=== PATIENT | male | born 1970 | race Caucasian/White ===

== ENCOUNTER 2020-10-22 06:45 | Emergency (ER) | payer BC, SELFPAY ==
--- NOTE | 2020-10-22 07:10 | ED.DIZZY ---
HPI - Dizziness General Stated Complaint: dizzy Time Seen by Provider: 10/22/20 07:10 Source: patient Mode of arrival: ambulatory Limitations: no limitations
[2020-10-22 07:16] VITALS: BP 178/95; PULSE 97; RESP 18; TEMP 36.8; O2SAT 100; BMI 32.5
--- NOTE | 2020-10-22 07:23 | ED_ITS ---
HPI - Alcohol General Chief Complaint: Dizziness Stated Complaint: dizzy Time Seen by Provider: 10/22/20 07:10 Source: patient Mode of arrival: ambulatory Limitations: no limitations History of Present Illness MD complaint: alcohol dependence Last drink: Days (ago) (yesterday 4pm) Chronic alcohol use: Yes Previous visits for alcohol intoxication: Yes Recent trauma: No Associated symptoms: nausea, tremors and other (feels weak and dizzy) Treatments prior to arrival: none Related Data Previous Rx's Medication Instructions Recorded chlordiazepoxide HCl 25 mg capsule See Rx Instructions .ROUTE 10/22/20 .COMPLEX PRN #30 cap naltrexone 50 mg tablet 50 mg PO DAILY #30 tab 10/22/20 ondansetron 4 mg disintegrating 4 mg PO Q8H PRN #20 tab 10/22/20 tablet Allergies Allergy/AdvReac Type Severity Reaction Status Date / Time No Known Allergies Allergy Verified 10/22/20 07:20 Review of Systems Review of Systems: Constitutional : No Weight loss, No Fever, No Chills, pos Fatigue, pos Malaise ENT/Mouth : No sore throat, No Rhinorrhea Eyes: No Eye Pain, No Swelling, No Redness Cardiovascular : No Chest Pain, No SOB, No Dyspnea on Exertion, No Orthopnea, No Edema, No Palpitations Respiratory : No Cough, No Sputum, No Wheezing Gastrointestinal : pos Nausea, No Vomiting, No Diarrhea, No Constipation, No abdominal Pain, No Hematochezia, No Melena Genitourinary : No Dysuria, No Urinary Frequency, No Hematuria, Musculoskeletal : No joint pain, No Myalgias, No Joint Swelling Skin : No Skin Lesions, No rash Neuro : pos Weakness, No Numbness, pos Dizziness, No Headache Psych : No Anxiety/Panic, No Depression Heme/Lymph: No Bruising, No Bleeding,No Lymphadenopathy Endocrine : No Polyuria, No Polydipsia All other systems reviewed and are negative [facility] Past Medical History Attestation statement: The following information was validated with the patient. Medical History Alcohol abuse HTN (hypertension) Social History Social History (Updated 10/22/20 @ 07:24 by Sara Garza DO) Alcohol intake: current Alcohol intake frequency: 3 or more drinks per day Alcohol type: wine Patient Tobacco Use Status: Never used Tobacco Use of substances other than those prescribed or required for medical reasons: No Advance Directives: No Advance Directives Information Provided: Yes Physical Exam Vital Signs: Vital Signs: Last Vital Signs Temp 98.2 F 10/22/20 07:16 Pulse 88 10/22/20 10:35 Resp 16 10/22/20 10:35 BP 131/83 10/22/20 10:35 Pulse Ox 99 10/22/20 10:35 Body Mass Index 32.5 Appearance: Alert. Oriented X3. No acute distress. Anxious Eyes: Pupils equal, round and reactive to light. ENT: Pharynx normal. Neck: Normal inspection. Neck supple. CVS: Normal heart rate and rhythm. Pulses normal. Respiratory: No respiratory distress. Breath sounds normal. Abdomen: Soft and nontender. Skin: Skin warm and dry. Normal skin color. Normal skin turgor. Extremities: No lower extremity edema. No calf ttp Neuro: Oriented X 3. No motor deficit. No sensory deficit. slightly tremulous Course Course Course Narrative: patient stable at this time medically cleared, VS stable, recovery coaches aware - wants to self detox at home Juan C from substance abuse team recommends naltrexone - patient has normal LFTs ,no opiate abuse MDM - Alcohol MDM Narrative Medical decision making narrative: 50 yo male with hx of HTN - didn't take his metoprolol yesterday, increasing ETOH abuse up to 4 to 5 bottles of wine a day, c/o feeling dizzy and weak with nausea, wants help to stop drinking, labs, IVF, ativan/magnesium, IV thiamine, once medically cleared will refer to recovery coaches, no SI. Lab Data Result diagrams: 10/22/20 07:30 10/22/20 07:30 Labs: Lab Results 10/22/20 10/22/20 10/22/20 Range/Units 07:30 07:30 07:30 WBC 6.8 (4.8-10.8) X10*3/uL RBC 4.62 (4.60-5.80) X10*6/uL Hgb 14.4 (14.0-18.0) g/dl Hct 40.8 L (42-52) % MCV 88.3 (80-98) fL MCH 31.2 (27.0-33.0) pg MCHC 35.3 (31.0-36.0) g/dl RDW 11.6 (11.0-16.0) % Plt Count 215 (160-400) X10*3/uL MPV 9.5 (9.4-12.4) fL Immature Gran % (Auto) 0.7 H (0.0-0.4) % Neut % (Auto) 84.6 H (45-73) % Lymph % (Auto) 7.5 L (20-40) % [place] % (Auto) 6.7 (2-11) % Eos % (Auto) 0.1 (0-4) % Baso % (Auto) 0.4 (0-2) % Lymph # (Auto) 0.5 L (1.2-4.9) X10*3/uL [place] # (Auto) 0.5 (0.1-1.2) X10*3/uL Eos # (Auto) 0.0 (0.0-0.4) X10*3/uL Baso # (Auto) 0.0 (0.0-0.2) X10*3/uL Abs Immat Gran (auto) 0.05 H (0.00-0.03) X10*3/uL Absolute Neuts (auto) 5.7 (2.0-8.3) X10*3/uL Absolute Nucleated RBC 0.000 (0.0-0.012) X10*3/uL Nucleated RBC % (auto) 0.0 (0.0-0.2) /100WBC Sodium 137 (135-145) mmol/L Potassium 3.9 (3.3-5.1) mmol/L Chloride 99 (96-108) mmol/L Carbon Dioxide 25 (22-29) mmol/L Anion Gap 17 (12-20) BUN 11 (9-16) mg/dL Creatinine 1.10 (0.5-1.4) mg/dL Estim Creat Clear Calc 95.5 Estimated GFR > 60 Random Glucose 115 (60-115) mg/dL Calcium 9.5 (8.4-10.2) mg/dL Magnesium 1.9 (1.6-2.6) mg/dL Total Bilirubin 0.9 (0.0-1.0) mg/dL Direct Bilirubin 0.3 (0.0-0.5) mg/dL AST 24 (5-37) U/L ALT 24 (0-40) U/L Alkaline Phosphatase 55 (39-117) U/L Total Protein 7.4 (6.5-8.0) g/dL Albumin 4.5 (3.5-5.0) g/dL Lipase 27 (8-78) U/L Ethyl Alcohol < 10 mg/dL COVID-19 (JP) (Negative) COVID-19 Clin Com 10/22/20 Range/Units 08:06 WBC (4.8-10.8) X10*3/uL RBC (4.60-5.80) X10*6/uL Hgb (14.0-18.0) g/dl Hct (42-52) % MCV (80-98) fL MCH (27.0-33.0) pg MCHC (31.0-36.0) g/dl RDW (11.0-16.0) % Plt Count (160-400) X10*3/uL MPV (9.4-12.4) fL Immature Gran % (Auto) (0.0-0.4) % Neut % (Auto) (45-73) % Lymph % (Auto) (20-40) % [place] % (Auto) (2-11) % Eos % (Auto) (0-4) % Baso % (Auto) (0-2) % Lymph # (Auto) (1.2-4.9) X10*3/uL [place] # (Auto) (0.1-1.2) X10*3/uL Eos # (Auto) (0.0-0.4) X10*3/uL Baso # (Auto) (0.0-0.2) X10*3/uL Abs Immat Gran (auto) (0.00-0.03) X10*3/uL Absolute Neuts (auto) (2.0-8.3) X10*3/uL Absolute Nucleated RBC (0.0-0.012) X10*3/uL Nucleated RBC % (auto) (0.0-0.2) /100WBC Sodium (135-145) mmol/L Potassium (3.3-5.1) mmol/L Chloride (96-108) mmol/L Carbon Dioxide (22-29) mmol/L Anion Gap (12-20) BUN (9-16) mg/dL Creatinine (0.5-1.4) mg/dL Estim Creat Clear Calc Estimated GFR Random Glucose (60-115) mg/dL Calcium (8.4-10.2) mg/dL Magnesium (1.6-2.6) mg/dL Total Bilirubin (0.0-1.0) mg/dL Direct Bilirubin (0.0-0.5) mg/dL AST (5-37) U/L ALT (0-40) U/L Alkaline Phosphatase (39-117) U/L Total Protein (6.5-8.0) g/dL Albumin (3.5-5.0) g/dL Lipase (8-78) U/L Ethyl Alcohol mg/dL COVID-19 (JP) Negative (Negative) COVID-19 Clin Com See Note Discharge Plan Discharge Clinical Impression: Alcohol abuse Patient Disposition: Home, Self-Care Instructions: Abuse of Alcohol (ED) Additional Instructions: return to ED for any worsening symptoms or concerns Prescriptions: New chlordiazepoxide HCl 25 mg capsule See Rx Instructions .ROUTE .COMPLEX PRN (Reason: alcohol withdrawal) Qty: 30 RF: 0 ondansetron 4 mg tablet,disintegrating 4 mg PO Q8H PRN (Reason: nausea and vomiting) Qty: 20 RF: 0 naltrexone 50 mg tablet 50 mg PO DAILY Qty: 30 RF: 1 Referrals: Himanshu Tejeda MD [Primary Care Provider] - 2 days (if not better) Stand Alone Forms: Work/School Release Interventions: ED Discharge Assessment Last Done: 10/22/20 10:45
[2020-10-22] MEDS: 0.9 % Sodium Chloride 1,000 ML 999 ML IVCONT (07:52)
[2020-10-22] MEDS: LORazepam 2 MG/ML VIAL 1 MG IVPUSH (07:52)
[2020-10-22] MEDS: Famotidine/PF 20 MG/2 ML VIAL IVPUSH (07:55)
[2020-10-22] MEDS: Thiamine HCL 200 MG/2 ML VIAL 100 MG IVPUSH (07:59)
[2020-10-22 08:05] VITALS: BP 138/93; PULSE 91
[2020-10-22] MEDS: Metoprolol Succinate ER 25 MG TAB.ER.24H PO (08:05)
[2020-10-22 08:09] LABS: MANUAL DIFF FLAG NO
[2020-10-22] MEDS: Magnesium Sulfate/H2O 2 GM/50 ML PIGGYBACK IV (08:14)
[2020-10-22 08:16] VITALS: BP 138/93; PULSE 88; RESP 17; O2SAT 98
[2020-10-22 08:17] LABS: Basophils Percent Auto 0.4 % (0-2); Eosinophils Percent Auto 0.1 % (0-4); Hematocrit 40.8 % (42-52); Hemoglobin 14.4 g/dl (14.0-18.0); Imm Gran Abs Auto 0.05 X10*3/uL (0.00-0.03); Imm Gran Pct Auto 0.7 % (0.0-0.4); Lymphocytes Absolute Auto 0.5 X10*3/uL (1.2-4.9); Lymphocytes Percent Auto 7.5 % (20-40); Mean Corpuscular HGB Conc 35.3 g/dl (31.0-36.0); Mean Corpuscular Hemoglobin 31.2 pg (27.0-33.0); Mean Corpuscular Volume 88.3 fL (80-98); Mean Platelet Volume 9.5 fL (9.4-12.4); Monocytes Absolute Auto 0.5 X10*3/uL (0.1-1.2); Monocytes Percent Auto 6.7 % (2-11); Neutrophils Absolute Auto 5.7 X10*3/uL (2.0-8.3); Neutrophils Percent Auto 84.6 % (45-73); Platelet Count 215 X10*3/uL (160-400); Red Blood Count 4.62 X10*6/uL (4.60-5.80); Red Cell Distribution Width 11.6 % (11.0-16.0); White Blood Count 6.8 X10*3/uL (4.8-10.8)
[2020-10-22 08:36] LABS: COVID-19 Test Negative (Negative); IDNOW Serial# 9DD0AD1C
[2020-10-22 08:44] LABS: Alanine Aminotransferase 24 U/L (0-40); Albumin Level 4.5 g/dL (3.5-5.0); Alkaline Phosphatase 55 U/L (39-117); Anion Gap 17 (12-20); Aspartate Amino Transferase 24 U/L (5-37); Bilirubin Direct 0.3 mg/dL (0.0-0.5); Bilirubin Total 0.9 mg/dL (0.0-1.0); Blood Urea Nitrogen 11 mg/dL (9-16); Calcium 9.5 mg/dL (8.4-10.2); Carbon Dioxide 25 mmol/L (22-29); Chloride 99 mmol/L (96-108); Creatinine Clr Calc Pharmacy 95.5; Estimated Glomerular Filt Rate > 60; Glucose Random 115 mg/dL (60-115); Lipase 27 U/L (8-78); Magnesium 1.9 mg/dL (1.6-2.6); Potassium 3.9 mmol/L (3.3-5.1); Sodium 137 mmol/L (135-145); Total Protein 7.4 g/dL (6.5-8.0)
[2020-10-22 08:45] LABS: Ethanol < 10 mg/dL
--- NOTE | 2020-10-22 08:55 | PC.NURSE ---
Patient is ambulatory to the bathroom and back in no distress with a steady gate. Pt states he does not feel shaky anymore and is not nauseated or dizzy
--- NOTE | 2020-10-22 10:27 | MHC.RECOVSUP ---
? Reason for consult:Continuity of care o Current location: Bed 3 o Identified substance use concern:ETOH - Withdrawal - Seeking ATS (detox) - Support ? Intervention: o MAT started or to be started o Community resources provided o Harm reduction discussion ? Plan: o Referral to [facility] - o Patient awaiting crisis evaluation o Patient to follow up with [facility] after discharge ? Additional information: Pt. seeking MAT with the [facility].
--- NOTE | 2020-10-22 10:30 | PC.NURSE ---
head strength and conditioning coach in [place] talking with patient. Pt wants treatment for alcohol abuse
[2020-10-22 10:35] VITALS: BP 131/83; PULSE 88; RESP 16; O2SAT 99
--- NOTE | 2020-10-22 12:01 | MHC.RECOVRN ---
T/w met with pt in ED to discuss substance use and desire to begin naltrexone. Pt reports drinking wine, 4 bottles most days of the week x 1 year. Pt denies other substances. Pt lives at home with his , who is supportive of pt. 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 Pt reports experiencing withdrawal symptoms when abstaining. Pt educated regarding safety and potential dangers of alcohol withdrawal. Pt encouraged to utilize an ATS. Pt currently interested in naltrexone and connecting to a therapist. Pt provided with resources, including list of local counseling services. Pt educated regarding naltrexone. T/w discussed case with Dr. Garza. Naltrexone script sent to pts pharmacy. Pt given prescription for Librium to treat withdrawal symptoms at home. Pt has appt to f/u with PCP on Monday and will discuss continuance of naltrexone.
== END 2020-10-22 11:30 | disposition home or self-care (01) ==
PROVIDERS: Emergency Provider Emergency Medicine; PCP Family Medicine
DX: R42 Dizziness and giddiness (principal); F10.129 Alcohol abuse with intoxication, unspecified; Y90.0 Blood alcohol level of less than 20 mg/100 ml; Z79.899 Other long term (current) drug therapy
CPT/HCPCS: 36415; 80048; 80076; 82077; 83690; 83735; 85025; 87635; 96365; 96375; 99284; J2060; J2405; J3411; J3475